=== PATIENT | female | born 1940 | race Caucasian/White ===

== ENCOUNTER 2024-02-27 07:16 | Observation (INO) | payer MEDICARE, OTHER ==
[2024-02-20 15:21] LABS: INR-International Normal Ratio 1.1; Prothrombin Time 11.8 sec (9.5-12.1)
[2024-02-20 15:25] LABS: Anion Gap 16 mmol/L (10-20); BUN (Urea Nitrogen) 32 mg/dL (9.8-20.1); Calc. Creatinine Clearance 0 mL/min (70-130); Calcium 9.7 mg/dL (7.8-10.44); Carbon Dioxide 27 mmol/L (23-31); Chloride 103 mmol/L (98-107); Estimated GFR 24; Glucose 156 mg/dL (83-110); Potassium 3.9 mmol/L (3.5-5.1); Sodium 142 mmol/L (136-145)
[2024-02-20 15:35] LABS: Hemoglobin 11.9 g/dL (12.0-15.5); Mean Corpuscular Hemoglobin 35.2 pg (27.0-33.0); Mean Corpuscular Volume 103.6 fL (81.6-98.3); Mean Platelet Volume 10.1 fL (7.4-10.4); Platelet Count 231 10x3/uL (150-450); RBC Distribution Width 14.1 % (11.5-14.5); Red Blood Cell (RBC) Count 3.38 10x6/uL (3.90-5.03); White Blood Cell (WBC) Count 7.3 10x3/uL (3.5-10.5)
[2024-02-27] MEDS ORDERED: Vancomycin (BATCH) 1.5 GM/300 ML BAG ONE (08:39)
[2024-02-27] MEDS ORDERED: CEFAZOLIN 2 GM VIAL ONE (09:14)
[2024-02-27] MEDS ORDERED: Heparin 10,000 UNITS/ 10 ML VIAL ONE (09:15)
[2024-02-27] MEDS ORDERED: Lidocaine 1% (PF) 30 ML VIAL ONE (09:15)
[2024-02-27] MEDS ORDERED: Iopamidol 370 76% 100 ML VIAL ONE (09:57)
[2024-02-27] MEDS ORDERED: Dexamethasone 20 MG/5 ML VIAL ONE (10:43)
[2024-02-27] MEDS ORDERED: PROPOFOL 20 ML ONE (10:44)
[2024-02-27] MEDS ORDERED: fentaNYL 50 mcg/mL 1 mL Vial ONE (10:44)
[2024-02-27] MEDS ORDERED: Ondansetron PF 4 MG/2 ML Vial ONE (10:44)
[2024-02-27] MEDS ORDERED: Lidocaine 1% PF 5 ML VIAL ONE (10:44)
[2024-02-27] MEDS ORDERED: PHENYLEPHRINE-NS 100 MCG/ML 10 ML SYRINGE ONE (11:02)
[2024-02-27] MEDS ORDERED: Acetaminophen 325 MG TAB PO PRN ×2 (16:03→16:15)
[2024-02-27] MEDS ORDERED: Famotidine 20 MG TAB PO PRN (16:07)
[2024-02-27] MEDS ORDERED: HYDROcodone/Acetaminophen 5/325 mg Tablet PO PRN ×2 (16:15)
[2024-02-27] MEDS: Atorvastatin Calcium 40 MG TAB PO SCH (21:04)
[2024-02-28 05:23] LABS: Anion Gap 14 mmol/L (10-20); BUN (Urea Nitrogen) 31 mg/dL (9.8-20.1); Calc. Creatinine Clearance 28 mL/min (70-130); Calcium 8.5 mg/dL (7.8-10.44); Carbon Dioxide 23 mmol/L (23-31); Chloride 105 mmol/L (98-107); Estimated GFR 27; Glucose 252 mg/dL (83-110); Potassium 3.7 mmol/L (3.5-5.1); Sodium 138 mmol/L (136-145)
[2024-02-28] MEDS: BuPROPion XL 150 MG ER.TAB PO SCH (09:32)
[2024-02-28] MEDS: Fish Oil 1,000 MG CAP PO SCH (09:32)
[2024-02-28] MEDS: Magnesium Oxide 400 MG TAB PO SCH (09:32)
[2024-02-28] MEDS: Prenatal Vitamin 1 TAB PO SCH (09:32)
[2024-02-28] MEDS: Alogliptin 6.25 MG TAB PO SCH (09:32)
[2024-02-28] MEDS: Ferrous Sulfate 325 MG TAB PO SCH (09:32)
[2024-02-28] MEDS: CO Q-10 CAPSULE 100 MG PO SCH (09:32)
[2024-02-28] MEDS: Ezetimibe 10 MG TAB PO SCH (09:32)
[2024-02-28] MEDS: Apixaban 2.5 MG TAB PO SCH (09:32)
[2024-02-28] MEDS: Allopurinol 300 MG TAB PO SCH (09:32)
[2024-02-28 10:59] VITALS: BMI 30.8
[2024-02-28] MEDS ORDERED: Furosemide 40 MG TAB PO SCH (12:00)
[2024-02-28 12:05] VITALS: BP 127/58; TEMP 97.6
[2024-03-02] MEDS ORDERED: Ergocalciferol 1.25 MG(50,000 UNITS) CAP PO SCH (09:00)
== END 2024-02-28 12:43 | disposition home or self-care (01) ==
LOC: SDC 07:16 → 2NO 12:27
PROVIDERS: ADMIT Internal Medicine Cardiovascular Disease; ATTEND Internal Medicine Cardiovascular Disease
PROC: 02HK3NZ Insertion of Intracardiac Pacemaker into Right Ventricle, Percutaneous Approach (ICD-10-PCS; principal; 2024-02-27)
DX: I48.21 Permanent atrial fibrillation (principal); I49.5 Sick sinus syndrome; I48.3 Typical atrial flutter; I35.0 Nonrheumatic aortic (valve) stenosis; I13.0 Hypertensive heart and chronic kidney disease with heart failure and stage 1 through stage 4 chronic kidney disease, or unspecified chronic kidney disease; N18.30 Chronic kidney disease, stage 3 unspecified; I50.32 Chronic diastolic (congestive) heart failure; E78.5 Hyperlipidemia, unspecified; E11.9 Type 2 diabetes mellitus without complications; I25.10 Atherosclerotic heart disease of native coronary artery without angina pectoris; Z95.1 Presence of aortocoronary bypass graft; Z90.49 Acquired absence of other specified parts of digestive tract; Z90.89 Acquired absence of other organs; Z98.890 Other specified postprocedural states; Z95.0 Presence of cardiac pacemaker; Z79.01 Long term (current) use of anticoagulants; Z79.899 Other long term (current) drug therapy; Z92.89 Personal history of other medical treatment; Z88.8 Allergy status to other drugs, medicaments and biological substances
CPT/HCPCS: 33274; 71045; 80048 ×2; 85027; 85610; 93005 ×2; C1760; C1769; C1786; C1894 ×5; J1100; J1644; J2001; J2405; J2704; J3010; J3370; 36415; 93010; Q9967